=== PATIENT | female | born 1985 | race African-American/Black ===

== ENCOUNTER 2021-12-09 22:45 | Emergency (ER) | payer MEDICAID ==
[~2021-12-09] VITALS: Ht 157.5 cm; Wt 70.8 kg
[2021-12-09 23:38] LABS: Basophils # (auto) 0.1 10 ^3/uL (0-0.2); Basophils % (auto) 0.4 % (0.0-2.0); Eosinophils # (auto) 0.4 10 ^3/uL (0-0.8); Eosinophils % (auto) 3.3 % (0.0-7.0); Hematocrit 38.1 % (36.0-46.0); Hemoglobin 12.7 g/dL (12.2-16.2); Lymphocytes # (auto) 3.7 10 ^3/uL (0.4-5.4); Lymphocytes % (auto) 29.9 % (10.0-50.0); Mean Corpuscular Hemoglobin 28.8 pg (28.0-32.0); Mean Corpuscular Hgb Conc. 33.3 g/dL (32.0-36.0); Mean Corpuscular Volume 86.3 fL (80.0-100.0); Monocytes # (auto) 0.7 10 ^3/uL (0-1.3); Monocytes % (auto) 5.4 % (0.0-12.0); Neutrophils # (auto) 7.5 10 ^3/uL (1.6-8.6); Red Blood Cells 4.42 10^6/uL (4.0-5.20); Red Cell Distribution Width 15.8 % (11.8-14.3); White Blood Cell 12.2 10^3/uL (4.4-10.8)
[2021-12-09 23:50] LABS: Albumin 3.5 g/dL (3.4-5.0); BUN/Creatinine Ratio 8.8; Calcium 8.9 mg/dL (8.5-10.1); Potassium 3.5 mmol/L (3.5-5.1)
[2021-12-09 23:53] LABS: Bilirubin, Total 0.1 mg/dL (0.2-1.0); Total Protein 7.7 g/dL (6.4-8.2)
[2021-12-10] MEDS ORDERED: MORPHINE SULFATE 4 MG/ML SYR/VIAL IV ONE (02:30)
[2021-12-10 04:58] VITALS: BP 132/81
== END 2021-12-10 05:00 | disposition home or self-care (01) ==
LOC: ER 22:53
DX: R10.13 Epigastric pain (principal); Z88.6 Allergy status to analgesic agent
CPT/HCPCS: 36415; 80053; 83690; 85025; 93005; 96374; 99285; J2270

== ENCOUNTER 2022-05-19 17:55 | Emergency (ER) | payer MEDICAID ==
[~2022-05-19] VITALS: Ht 157.5 cm; Wt 70.9 kg
[2022-05-19] MEDS ORDERED: SODIUM CHLORIDE 0.9% 1,000 ML IV ONE (18:00)
[2022-05-19 18:28] LABS: Basophils # (auto) 0.1 10 ^3/uL (0-0.2); Basophils % (auto) 0.6 % (0.0-2.0); Eosinophils # (auto) 0.2 10 ^3/uL (0-0.8); Eosinophils % (auto) 1.8 % (0.0-7.0); Hemoglobin 13.4 g/dL (12.2-16.2); Lymphocytes # (auto) 3.6 10 ^3/uL (0.4-5.4); Lymphocytes % (auto) 27.3 % (10.0-50.0); Mean Corpuscular Hemoglobin 28.7 pg (28.0-32.0); Mean Corpuscular Hgb Conc. 33.4 g/dL (32.0-36.0); Monocytes # (auto) 0.7 10 ^3/uL (0-1.3); Monocytes % (auto) 5.4 % (0.0-12.0); Neutrophils # (auto) 8.5 10 ^3/uL (1.6-8.6); Neutrophils % (auto) 64.9 % (37.0-80.0); Nucleated Red Blood Cells % 0.1 %; Red Blood Cells 4.66 10^6/uL (4.0-5.20); Red Cell Distribution Width 14.6 % (11.8-14.3); White Blood Cell 13.1 10^3/uL (4.4-10.8)
[2022-05-19 18:42] LABS: Albumin 3.6 g/dL (3.4-5.0); BUN/Creatinine Ratio 11.7; Calcium 8.9 mg/dL (8.5-10.1)
[2022-05-19 18:46] LABS: Bilirubin, Total 0.2 mg/dL (0.2-1.0); Total Protein 7.8 g/dL (6.4-8.2)
[2022-05-19] MEDS ORDERED: CEPH-510 PO (19:07)
[2022-05-19 21:25] LABS: Urine Bacteria NONE SEEN /hpf (None Seen); Urine Blood TRACE /uL (Negative); Urine Specific Gravity 1.015 (1.001-1.035); Urine WBC 1 /hpf (0 - 5)
[2022-05-19 21:33] VITALS: BP 146/87
== END 2022-05-19 21:37 | disposition home or self-care (01) ==
LOC: ER 17:55
DX: R55 Syncope and collapse (principal); D72.829 Elevated white blood cell count, unspecified; I10 Essential (primary) hypertension; E11.9 Type 2 diabetes mellitus without complications
CPT/HCPCS: 36415; 70450; 80053; 81001; 85025; 93005; 96360

== ENCOUNTER 2022-07-05 13:01 | Emergency (ER) | payer MEDICAID ==
[~2022-07-05] VITALS: Ht 157.5 cm; Wt 156.0 kg
[~2022-07-05 13:01] MED LIST: CEPH-510 PO
[2022-07-05 13:37] LABS: Basophils # (auto) 0 10 ^3/uL (0-0.2); Basophils % (auto) 0.5 % (0.0-2.0); Eosinophils # (auto) 0 10 ^3/uL (0-0.8); Eosinophils % (auto) 0.3 % (0.0-7.0); Hematocrit 40.3 % (36.0-46.0); Hemoglobin 13.4 g/dL (12.2-16.2); Lymphocytes # (auto) 2.1 10 ^3/uL (0.4-5.4); Lymphocytes % (auto) 22.5 % (10.0-50.0); Mean Corpuscular Hemoglobin 28.3 pg (28.0-32.0); Mean Corpuscular Hgb Conc. 33.2 g/dL (32.0-36.0); Mean Corpuscular Volume 85.1 fL (80.0-100.0); Monocytes # (auto) 0.8 10 ^3/uL (0-1.3); Monocytes % (auto) 8.6 % (0.0-12.0); Neutrophils # (auto) 6.5 10 ^3/uL (1.6-8.6); Neutrophils % (auto) 68.1 % (37.0-80.0); Red Blood Cells 4.74 10^6/uL (4.0-5.20); Red Cell Distribution Width 14.9 % (11.8-14.3); White Blood Cell 9.5 10^3/uL (4.4-10.8)
[2022-07-05 13:52] LABS: Albumin 3.7 g/dL (3.4-5.0); Calcium 8.9 mg/dL (8.5-10.1)
[2022-07-05 13:56] LABS: BUN/Creatinine Ratio 15.2; Bilirubin, Total 0.2 mg/dL (0.2-1.0); Total Protein 7.6 g/dL (6.4-8.2)
[2022-07-05] MEDS ORDERED: PRED20TA2 PO (14:59)
[2022-07-05] MEDS ORDERED: LEVO-28 PO (14:59)
[2022-07-05] MEDS ORDERED: levoFLOXacin 500 MG TAB PO ONE (15:00)
[2022-07-05] MEDS ORDERED: methylPREDNISolone SOD SUCC 125 MG/2 ML VL IM ONE (15:00)
[2022-07-05 15:34] VITALS: BP 128/77
== END 2022-07-05 15:35 | disposition home or self-care (01) ==
LOC: ER 13:01
DX: J40 Bronchitis, not specified as acute or chronic (principal); E11.9 Type 2 diabetes mellitus without complications
CPT/HCPCS: 36415; 71045; 80053; 84484; 85025; 85379; 93005